=== PATIENT | male | born 1990 | race Two or more races ===

== ENCOUNTER 2017-11-04 09:04 | Emergency (ER) | payer MEDICAID ==
[~2017-11-04] VITALS: Ht 175.3 cm; Wt 87.5 kg
[2017-11-04 09:33] VITALS: BP 131/68
[2017-11-04] MEDS ORDERED: KETOROLAC TROMETH 60MG/2ML VIAL IM ONE (10:45)
== END 2017-11-04 10:53 | disposition home or self-care (01) ==
LOC: ER 09:04
DX: R51 Headache (principal)
CPT/HCPCS: 70450; 96372; 99284; J1885

== ENCOUNTER 2018-02-06 23:43 | Emergency (ER) | payer MEDICAID ==
[~2018-02-06] VITALS: Ht 175.3 cm; Wt 87.5 kg
[2018-02-07 01:30] VITALS: BP 130/82
== END 2018-02-07 02:28 | disposition home or self-care (01) ==
LOC: ER 23:45
DX: H61.22 Impacted cerumen, left ear (principal)

== ENCOUNTER 2018-04-12 16:17 | Emergency (ER) | payer MEDICAID ==
[~2018-04-12] VITALS: Ht 175.3 cm; Wt 89.8 kg
[2018-04-12 16:49] VITALS: BP 115/73
== END 2018-04-12 19:19 | disposition home or self-care (01) ==
LOC: ER 16:17
DX: H60.92 Unspecified otitis externa, left ear (principal)

== ENCOUNTER 2018-05-26 17:48 | Emergency (ER) | payer MEDICAID ==
[~2018-05-26] VITALS: Ht 177.8 cm; Wt 88.5 kg
[2018-05-26 21:15] VITALS: BP 115/76
== END 2018-05-26 21:39 | disposition home or self-care (01) ==
LOC: ER 17:53
DX: E86.0 Dehydration (principal)

== ENCOUNTER 2018-11-18 20:59 | Emergency (ER) | payer MEDICAID ==
[~2018-11-18] VITALS: Ht 177.8 cm; Wt 86.2 kg
[2018-11-18 22:10] LABS: Urine WBC None Seen /hpf (0 - 3)
[2018-11-18 22:13] LABS: Basophils # (auto) 0 uL; Basophils % (auto) 0.3 % (0.0-2.0); Eosinophils # (auto) 0.4 uL; Eosinophils % (auto) 6.4 % (0.0-7.0); Hematocrit 45.8 % (41.0-53.0); Hemoglobin 14.9 g/dL (13.5-17.5); Lymphocytes # (auto) 2.5 uL; Mean Corpuscular Hemoglobin 27.4 pg (28.0-32.0); Mean Corpuscular Hgb Conc. 32.6 g/dL (32.0-36.0); Mean Corpuscular Volume 84.3 fL (80.0-100.0); Monocytes # (auto) 0.7 uL; Monocytes % (auto) 9.9 % (0.0-12.0); Neutrophils # (auto) 3.1 uL; Neutrophils % (auto) 46.4 % (37.0-80.0); Platelet Count (auto) 263 10^3/uL (140-450); Red Blood Cells 5.44 10^6/uL (4.5-5.90); Red Cell Distribution Width 14.3 % (11.8-14.3); White Blood Cell 6.8 10^3/uL (4.4-10.8)
[2018-11-18 22:22] LABS: Urine Bacteria NONE SEEN /hpf (None Seen); Urine Blood Negative /uL (Negative); Urine Specific Gravity 1.004 (1.001-1.035)
[2018-11-18 22:34] LABS: Albumin 3.9 g/dL (3.4-5.0); Calcium 8.3 mg/dL (8.5-10.1); Magnesium 2.5 mg/dL (1.6-2.6); Potassium 3.7 mmol/L (3.5-5.1)
[2018-11-18 22:37] LABS: BUN/Creatinine Ratio 11.4; Bilirubin, Total 0.4 mg/dL (0.2-1.0); Total Protein 7.7 g/dL (6.4-8.2)
[2018-11-19] MEDS ORDERED: LORazepam 0.5 MG TAB PO ONE (07:30)
[2018-11-19 09:12] VITALS: BP 113/74
== END 2018-11-19 11:13 | disposition home or self-care (01) ==
LOC: ER 20:59
DX: R11.2 Nausea with vomiting, unspecified (principal); E86.0 Dehydration; F41.8 Other specified anxiety disorders
CPT/HCPCS: 36415; 74176; 80053; 81001; 83735; 85025

== ENCOUNTER 2020-07-26 20:56 | Emergency (ER) | payer MEDICAID, OTHER ==
[~2020-07-26] VITALS: Ht 177.8 cm; Wt 95.3 kg
[2020-07-26 21:26] VITALS: BP 125/84
== END 2020-07-27 01:04 | disposition left against medical advice (07) ==
LOC: ER 20:56
DX: R10.9 Unspecified abdominal pain (principal); M54.2 Cervicalgia; Z53.21 Procedure and treatment not carried out due to patient leaving prior to being seen by health care provider